=== PATIENT | male | born 1965 | race Caucasian/White ===

== ENCOUNTER 2021-08-17 16:48 | Inpatient (IN) | payer BC ==
[~2021-08-17] VITALS: Ht 180.3 cm; Wt 104.3 kg
[2021-08-17 18:21] LABS: HEMOGLOBIN 17.1 gm/dl (14.0-17.5); RED BLOOD COUNT 5.39 M/UL (4.20-5.50); WHITE BLOOD COUNT 5.1 K/UL (4.5-11.0)
[2021-08-17 18:57] LABS: BUN/CREATININE RATIO 14 (0-10)
[2021-08-17] MEDS ORDERED: PRAVASTATIN SOD40 MG PO (20:12)
[2021-08-17] MEDS ORDERED: AMLODIPINE BESY10 MG PO (20:12)
[2021-08-17] MEDS ORDERED: HYDROCHLOROTHIA25 MG PO (20:12)
[2021-08-17] MEDS ORDERED: ADVIL200 MG PO (20:13)
[2021-08-17] MEDS ORDERED: DAILY VALUE1 EACH PO (20:13)
[2021-08-18 05:01] LABS: RED BLOOD COUNT 5.65 M/UL (4.20-5.50); WHITE BLOOD COUNT 4.2 K/UL (4.5-11.0)
[2021-08-18 06:13] LABS: BUN/CREATININE RATIO 18 (0-10)
[2021-08-18 17:01] LABS: ACINETOBACTER BAUMANNII Not Detected (Negative); ENTEROCOCCUS Not Detected (Negative); ESCHERICHIA COLI Not Detected (Negative); KLEBSIELLA OXYTOCA Not Detected (Negative); KPC-CARBAPENEM-RESISTANCE GENE Not Detected (Negative); STAPHYLOCOCCUS AUREUS Not Detected (Negative); STREP AGALACTIAE (GROUP B) Not Detected (Negative); STREP PYOGENES (GROUP A) Not Detected (Negative); STREPTOCOCCUS Not Detected (Negative); mecA (METHICILLIN RESIST GENE Not Detected (Negative); vanA/B (VANCOMYCIN RESIST GENE Not Detected (Negative)
[2021-08-18 17:02] LABS: CANDIDA ALBICANS Not Detected (Negative); CANDIDA KRUSEI Not Detected (Negative); CANDIDA TROPICALIS Not Detected (Negative); HAEMOPHILUS INFLUENZAE Not Detected (Negative); KLEBSIELLA PNEUMONIAE Not Detected (Negative); PROTEUS Not Detected (Negative); PSEUDOMONAS AERUGINOSA Not Detected (Negative); SERRATIA MARCESANS Not Detected (Negative)
[2021-08-18 18:36] LABS: STAPHYLOCOCCUS DETECTED (Negative)
[2021-08-19 06:50] LABS: HEMOGLOBIN 15.8 gm/dl (14.0-17.5); RED BLOOD COUNT 4.94 M/UL (4.20-5.50); WHITE BLOOD COUNT 11.9 K/UL (4.5-11.0)
[2021-08-19 07:00] LABS: BUN/CREATININE RATIO 25 (0-10)
[2021-08-20 05:21] LABS: HEMOGLOBIN 15.1 gm/dl (14.0-17.5); RED BLOOD COUNT 4.7 M/UL (4.20-5.50); WHITE BLOOD COUNT 13.1 K/UL (4.5-11.0)
[2021-08-20 05:37] LABS: BUN/CREATININE RATIO 30 (0-10)
[2021-08-21 07:02] LABS: BUN/CREATININE RATIO 30 (0-10)
[2021-08-21] MEDS ORDERED: AZITHROMYCIN250 MG PO (14:24)
[2021-08-21] MEDS ORDERED: MEDROL DOSEPAK 24 MG PO (14:24)
[2021-08-21] MEDS ORDERED: PROAIR HFA8.5 GM INH (14:24)
== END 2021-08-21 18:41 | disposition home or self-care (01) | DRG 177 ==
LOC: ER1 16:48 → CDU 18:15 → MED SURG 4 08-18 13:49
PROVIDERS: Emergency Medicine; Physician Assistant Medical; ADMIT Internal Medicine
DX: U07.1 COVID-19 (principal); J12.82 Pneumonia due to coronavirus disease 2019; J96.01 Acute respiratory failure with hypoxia; N17.9 Acute kidney failure, unspecified; M62.82 Rhabdomyolysis; E87.1 Hypo-osmolality and hyponatremia; K76.0 Fatty (change of) liver, not elsewhere classified; R73.9 Hyperglycemia, unspecified; I10 Essential (primary) hypertension; E78.5 Hyperlipidemia, unspecified; T50.2X5A Adverse effect of carbonic-anhydrase inhibitors, benzothiadiazides and other diuretics, initial encounter; E87.6 Hypokalemia; E86.1 Hypovolemia; Z98.890 Other specified postprocedural states
CPT/HCPCS: 36415; 36600; 71045; 71275; 80053; 80202; 82550; 82553; 82728; 82803; 83036; 83605; 83615; 83874; 83880; 84484; 85025; 85027; 85379; 85610; 87040; 87077; 87150; 87186; 93005; 94640; 94664; 94760; 96374; 99285; J0456; J0696; J1100; J1650; J3370; J7030; J7070; Q9965